=== PATIENT | female | born 2000 | race Caucasian/White ===

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

== ENCOUNTER 2019-01-20 11:05 | Outpatient (CLI) | payer OTHER | END 2019-01-20 14:40 | disposition home or self-care (01) | LOC: OBT 11:05 → L-D 11:05 → OBT 14:40 | DX: O36.8130 Decreased fetal movements, third trimester, not applicable or unspecified (principal); O32.1XX0 Maternal care for breech presentation, not applicable or unspecified; Z3A.29 29 weeks gestation of pregnancy | CPT/HCPCS: 76818 ==

== ENCOUNTER 2019-04-01 10:22 | Inpatient (IN) | payer OTHER ==
[2019-04-01] MEDS ORDERED: OXYTOCIN 30 UNITS/LR 500 ML IV (11:30)
[2019-04-01] MEDS ORDERED: METHYLERGONOVINE 0.2 MG INJ IM (11:30)
[2019-04-01] MEDS ORDERED: MISOPROSTOL 200 MCG TAB PR (11:30)
[2019-04-01] MEDS ORDERED: CARBOPROST 250 MCG INJ IM (11:30)
[2019-04-01] MEDS ORDERED: LIDOCAINE 1% (MPF) 30 ML INJ INJ (11:30)
[2019-04-01] MEDS: LACTATED RINGER'S 1,000 ML IV ×2 (11:56→16:52)
[2019-04-01 12:18] LABS: ADD MAN DIFF? NO
[2019-04-01 12:23] LABS: BASOPHILS % 0.5 % (0.0-2.0); EOSINOPHILS # 0.1 10^3/ul (0.0-0.5); EOSINOPHILS % 0.6 % (0.0-7.0); HEMOGLOBIN 11.4 g/dl (12.0-16.0); LYMPHOCYTES # 1.5 10^3/ul (0.8-2.9); LYMPHOCYTES % 18.3 % (18.0-55.0); MEAN CORPUSCULAR HEMOGLOBIN 30.5 pg (29.0-33.0); MEAN CORPUSCULAR HGB CONC 33.5 g/dl (32.0-37.0); MEAN CORPUSCULAR VOLUME 90.9 fl (72.0-104.0); MEAN PLATELET VOLUME 12.3 fl (7.4-10.4); MONOCYTE # 0.6 10^3/ul (0.3-0.9); NEUTROPHIL # 5.9 10^3/ul (1.6-7.5); NEUTROPHILS % 71.9 % (30.0-74.0); PLATELET COUNT 147 10^3/UL (140-415); RED BLOOD COUNT 3.74 10^6/ul (4.20-5.40); RED CELL DISTRIBUTION WIDTH 13.7 % (11.5-14.5)
[2019-04-01 12:23] LABS: WHITE BLOOD COUNT 8.2 10^3/ul (4.8-10.8)
[2019-04-01 12:44] LABS: INR 0.92; PARTIAL THROMBOPLASTIN TIME 29.1 Sec (23.0-35.0); PROTIME 12.5 Sec (11.9-14.9)
[2019-04-01 15:47] LABS: HEPATITIS B SURFACE ANTIGEN NEGATIVE (NEGATIVE)
[2019-04-01 19:09] LABS: RAPID PLASMA REAGIN NONREACTIVE (NR)
[2019-04-01] MEDS: OXYTOCIN 30 UNITS/LR 500 ML IV (20:07)
[2019-04-01] MEDS ORDERED: BUTORPHANOL 2 MG INJ IV (20:30)
[2019-04-01] MEDS: MINERAL OIL LIGHT 10 ML VIAL TOP (20:30)
[2019-04-01] MEDS: BUTORPHANOL 2 MG INJ IV (20:35)
[2019-04-01] MEDS ORDERED: LACTATED RINGER'S 1,000 ML IV (22:29)
[2019-04-01] MEDS ORDERED: FENTAnyl 2MCG/ML-ROPIV 0.2% 100 ML BAG EPI (23:00)
[2019-04-01] MEDS ORDERED: NALOXONE (0.4 MG/ML) INJ IV (23:00)
[2019-04-01] MEDS ORDERED: DIPHENHYDRAMINE 50 MG INJ IV (23:00)
[2019-04-01] MEDS ORDERED: ONDANSETRON 4 MG INJ IV (23:00)
[2019-04-02] MEDS: LACTATED RINGER'S 1,000 ML IV (01:38)
[2019-04-02] MEDS: OXYTOCIN 30 UNITS/LR 500 ML IV ×4 (03:53→08:37)
[2019-04-02] MEDS ORDERED: METHYLERGONOVINE 0.2 MG INJ IM (04:30)
[2019-04-02] MEDS ORDERED: OXYTOCIN 30 UNITS/LR 500 ML IV (04:30)
[2019-04-02] MEDS ORDERED: MISOPROSTOL 200 MCG TAB PR (04:30)
[2019-04-02] MEDS ORDERED: CARBOPROST 250 MCG INJ IM (04:30)
[2019-04-02] MEDS: IBUPROFEN 600 MG TAB PO ×4 (06:08→23:45)
[2019-04-02] MEDS: LACTATED RINGER'S 1,000 ML IV* ×2 (08:39→12:01)
[2019-04-03] MEDS: IBUPROFEN 600 MG TAB PO ×4 (06:00→23:50)
[2019-04-03 08:47] LABS: ADD MAN DIFF? NO
[2019-04-03 08:57] LABS: WHITE BLOOD COUNT 9.4 10^3/ul (4.8-10.8)
[2019-04-03 08:57] LABS: BASOPHILS % 0.4 % (0.0-2.0); EOSINOPHILS # 0.1 10^3/ul (0.0-0.5); EOSINOPHILS % 0.7 % (0.0-7.0); HEMATOCRIT 30.6 % (37.0-47.0); HEMOGLOBIN 10.3 g/dl (12.0-16.0); LYMPHOCYTES # 2.3 10^3/ul (0.8-2.9); LYMPHOCYTES % 24.7 % (18.0-55.0); MEAN CORPUSCULAR HEMOGLOBIN 30.8 pg (29.0-33.0); MEAN CORPUSCULAR HGB CONC 33.7 g/dl (32.0-37.0); MEAN CORPUSCULAR VOLUME 91.6 fl (72.0-104.0); MONOCYTE # 0.7 10^3/ul (0.3-0.9); MONOCYTES % 7.3 % (0.0-13.0); NEUTROPHIL # 6.1 10^3/ul (1.6-7.5); NEUTROPHILS % 65.3 % (30.0-74.0); PLATELET COUNT 139 10^3/UL (140-415); RED BLOOD COUNT 3.34 10^6/ul (4.20-5.40); RED CELL DISTRIBUTION WIDTH 13.7 % (11.5-14.5)
[2019-04-03] MEDS: BENZOCAINE 20% 56 ML SPRAY TOP (10:58)
[2019-04-03] MEDS: HYDROCODONE/APAP (5/325) TAB PO (20:13)
[2019-04-04] MEDS: IBUPROFEN 600 MG TAB PO ×2 (05:36→11:52)
[2019-04-04] MEDS: DIPHTH/TET/ACEL PERTUSS (ADULT) 0.5 ML VIAL IM* (11:53)
== END 2019-04-04 13:45 | disposition home or self-care (01) | DRG 807 ==
LOC: OBT 10:22 → PP1 04-02 05:29 → L-D 10:23 → OBT 10:55 → L-D 10:55
PROVIDERS: Specialist
PROC: 10E0XZZ Delivery of Products of Conception, External Approach (ICD-10-PCS; principal; 2019-04-02)
PROC: 0KQM0ZZ Repair Perineum Muscle, Open Approach (ICD-10-PCS; 2019-04-02)
DX: O70.1 Second degree perineal laceration during delivery (principal); Z37.0 Single live birth; Z3A.40 40 weeks gestation of pregnancy
CPT/HCPCS: 62322; 76815; 85025; 85610; 85730; 86592; 86850; 86900; 86901; 87340; 90715